=== PATIENT | female | born 1945 | race Caucasian/White ===

== ENCOUNTER 2024-05-23 20:51 | Emergency (ER) | payer MEDICARE, OTHER, SELFPAY ==
[2024-05-23 20:52] VITALS: BP 148/70
[2024-05-23 21:01] VITALS: BP 148/70
[2024-05-23 21:03] VITALS: BMI 39.1
--- NOTE | 2024-05-23 21:11 | ED.GENMED ---
History of Present Illness
General
Chief Complaint: Chest Pain
Source: patient
Time Seen by Provider: 05/23/24 21:01
History of Present Illness
History of Present Illness:
79-year-old female presents to the emergency room complaining of chest pain. Pain began at 5 PM. Patient was playing bingo at the time. Patient is wheelchair-bound. Pain has been constant since the onset. Seems worse with deep breath. No fever
or chills. Patient denies having pain like this before.
Phy Exam
Physical Exam
Physical Exam:
General: Awake, Alert, Oriented X3. No acute distress.
Vitals: unremarkable
Head: Atraumatic
Eyes: Pupils equal, EOMI
Throat: Airway intact, no exudates
Neck: Trachea midline
Lungs: Clear and equal b/l
Heart: Regular rate, no murmurs
Abd: Soft, Nontender, No pulsatile mass
Neuro: Baseline left-sided weakness
Skin: Warm, dry, no rash
Extremities: pulses equal b/l, no edema
Scores
Heart Score for Chest Pain Patients
STEMI patient?: No
History: Slightly or Non-Suspicious
ECG: Normal
Age: >/= 65 years
Risk Factors: 1 or 2 Risk Factors
Troponin: </= Normal Limit
Heart Score for Chest Pain Patients: 3
Heart Score Risk: 2.5% MACE over next 6 weeks
Course
Orders/Labs/Results
Orders:
Orders
05/23/24 20:53
Electrocardiogram (*1) Urgent
Reason for Study: Chest Pain
Cardiac Monitoring- Treatment ONCE
EKG- Treatment ONCE
IV Insert/Care/Rem.- Treatment PRN
O2 Therapy [RESP] Urgent
Titrate/Wean O2 to maintain O2 sat greater than (%): 90
Special Instructions: Maintain sats >/=90%
Pulse Ox/spot Check [RESP] Urgent
Quantity: 1
Special Instructions: ON ROOM AIR
05/23/24 21:09
CR Chest Portable - 1 View Urgent
Comment:
Reason For Exam: chest pain
Reason Study Needs to be Portable: Unable to Transport
05/23/24 21:11
Complete Blood Count/With Diff Urgent
Comprehensive Metabolic Panel Urgent
Troponin I Urgent
05/23/24 23:28
Troponin I Urgent
Abnormal Lab Results
05/23/24
21:11
RBC 3.69 L 10^6/uL
(4.20-5.40)
Hgb 9.3 L g/dL
(12.0-16.0)
Hct 30.1 L %
(37.0-47.0)
MCH 25.2 L pg
(27.0-31.0)
MCHC 30.9 L g/dL
(33.0-37.0)
RDW 19.7 H %
(11.5-14.5)
MPV 10.8 H fL
(7.4-10.4)
Abs Immat Gran (auto) 0.1 H 10^3/uL
(0-0.05)
Absolute Neuts (auto) 7.8 H 10^3/uL
(1.4-6.5)
Absolute Lymphs (auto) 1.1 L 10^3/uL
(1.2-3.4)
Absolute Monos (auto) 0.8 H 10^3/uL
(0.1-0.6)
Neutrophils % 75.9 H %
(42.2-75.2)
Lymphocytes % 10.4 L %
(20.5-51.1)
BUN 26 H mg/dl
(7-17)
Creatinine 1.7 H mg/dL
(0.6-1.0)
Glucose 290 H mg/dl
(70-99)
Total Protein 6.1 L g/dl
(6.3-8.2)
05/23/24 21:11
05/23/24 21:11
Vital Signs
Initial and Last Documented VS:
Initial Vital Signs
Temp Pulse Resp BP Pulse Ox
98.7 F 72 19 148/70 93
05/23/24 20:52 05/23/24 20:52 05/23/24 20:52 05/23/24 20:52 05/23/24 20:52
Last Documented Vital Signs
Temp Pulse Resp BP Pulse Ox
98.7 F 65 18 148/71 95
05/23/24 20:52 05/24/24 03:45 05/24/24 03:45 05/24/24 03:00 05/24/24 03:45
MDM/Problems Addressed
Differential Diagnosis Includes:
Chest wall pain, pneumothorax, acute coronary syndrome, GERD
MDM/Problems Addressed:
EKG shows no acute ischemic changes. Troponins negative x 2. Patient is not tachycardic. She is not short of breath. Chest x-ray shows no acute pneumothorax or other abnormality. Stable for discharge home.
*Radiology
Radiology exam reviewed: radiology read reviewed
*Pulse Oximetry
Patient hypoxic: no
*EKG
Interpreted by ED Provider?: Yes
Interpretation: normal
Heart Rate: 71
Rate: normal
Rhythm: sinus
[place]: normal axis
Interval: normal interval
QRS Pattern: normal QRS
Ischemia: no ischemia
*Package Line Operator Interpretation
Rate: normal
Interpretation: normal
Rhythm: sinus
*Critical Care Note
Total Time (30-74mins, 75-104mins- exclusive of procedures): Not Applicable
ED Attending Note
-
Portions of this chart may have been created with voice recognition software.� Occasional wrong word or��sound alike� substitutions may have occurred due to the inherent limitations of voice recognition software.
Discharge Plan
Departure
Patient Disposition: Home (Routine Discharge)
Date of Disposition: 05/24/24
Time of Disposition: 00:46
Patient with high blood pressure during this ER visit?: No
Condition: Good
Discharge Problem:
Chest pain
Instructions: Chest Pain CBC Follow Up
Referrals:
Palmira Vences DO [Family Provider] -
Interventions
Interventions:
*Risk Screen - Suicide Last Done: 05/23/24 20:52
*General Assessment Last Done: 05/23/24 20:52
*Neglect/Abuse Screening Last Done: 05/23/24 20:52
ED- Fall Risk Assessment Last Done: 05/23/24 22:04
*ED COVID-19 Vaccine History Last Done: 05/23/24 22:07
*Nursing Disposition Last Done: 05/24/24 04:01
ED- Cardiac Assessment Last Done: 05/23/24 22:04
Discharge Date and Time
Discharge Date/Time: 05/24/24 04:01
Print Language: BULGARIAN
[2024-05-23 21:19] LABS: % Basophils 0.5 % (0-2); % Eosinophils 4.8 % (0-6); % Immature Granulocytes 0.5 % (0-0.5); % Lymphocytes 10.4 % (20.5-51.1); % Monocytes 7.9 % (1.7-9.3); % Neutrophils 75.9 % (42.2-75.2); Absolute Basophils 0.1 10^3/uL (0-0.2); Absolute Eosinophils 0.5 10^3/uL (0-0.7); Absolute Immature Granulocytes 0.1 10^3/uL (0-0.05); Absolute Lymphocytes 1.1 10^3/uL (1.2-3.4); Absolute Monocytes 0.8 10^3/uL (0.1-0.6); Absolute Neutrophils 7.8 10^3/uL (1.4-6.5); Hematocrit 30.1 % (37.0-47.0); Hemoglobin 9.3 g/dL (12.0-16.0); Mean Corp Hgb Conc. 30.9 g/dL (33.0-37.0); Mean Corpuscular Hgb 25.2 pg (27.0-31.0); Mean Corpuscular Volume 81.6 fL (81.0-99.0); Mean Platelet Volume 10.8 fL (7.4-10.4); Nucleated Red Blood Cells % 0 %; Platelet Count 208 10^3/uL (130-400); Red Blood Cell Count 3.69 10^6/uL (4.20-5.40); Red Cell Dist. Width 19.7 % (11.5-14.5); White Blood Cell Count 10.3 10^3/uL (4.8-10.8)
[2024-05-23 21:33] LABS: ALT (SGPT) 11 U/L (0-35); AST (SGOT) 16 U/L (14-36); Albumin 3.6 g/dl (3.5-5.0); Alkaline Phosphatase 79 U/L (38-126); Blood Urea Nitrogen 26 mg/dl (7-17); Calcium 8.7 mg/dl (8.4-10.2); Carbon Dioxide 25 mmol/L (22-30); Chloride 105 mmol/L (98-107); Estimated Creatinine Clearance 26 ml/min; Glucose 290 mg/dl (70-99); Potassium 3.7 mmol/L (3.5-5.1); Sodium 140 mmol/L (135-145); Total Bilirubin 0.4 mg/dl (0.2-1.3); Total Protein 6.1 g/dl (6.3-8.2)
[2024-05-23 21:46] LABS: Troponin I < 0.012 ng/ml
[2024-05-23 22:00] VITALS: BP 111/74
[2024-05-23 23:00] VITALS: BP 153/62
[2024-05-24] VITALS: BP 137/60
[2024-05-24 00:02] LABS: Troponin I < 0.012 ng/ml
[2024-05-24 01:00] VITALS: BP 144/73
[2024-05-24 02:00] VITALS: BP 146/68
[2024-05-24 03:00] VITALS: BP 148/71
== END 2024-05-24 04:01 | disposition home or self-care (01) ==
LOC: EMR 20:51
PROVIDERS: EMERGENCY PHYSICIAN Emergency Medicine; FAMILY PHYSICIAN Hospitalist
DX: R07.89 Other chest pain (principal)
CPT/HCPCS: 99285; 71045; 80053; 84484; 85025; 93005